=== PATIENT | male | born 2000 | race Two or more races ===

== ENCOUNTER 2024-11-06 16:51 | Emergency (ER) | payer MEDICAID, SELFPAY ==
[2024-11-06 16:55] VITALS: BP 141/85; PULSE 110; RESP 17; TEMP 36.8; O2SAT 99; BMI 26.6
[2024-11-06 17:00] VITALS: PULSE 112; O2SAT 98; BMI 25.8
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
[2024-11-06] MEDS: SODIUM CHLORIDE 0.9% 1000 ML 1,000 ML 125 ML IV (17:13)
[2024-11-06] MEDS: MORPHINE SULF INJ 10 MG/ML VIAL 4 MG IVP (17:13)
[2024-11-06 17:26] LABS: Basophils # (Auto) 0.1 Thou/mm3 (0.0-0.2); Basophils % (Auto) 0 % (0-2.5); Eosinophils % (Auto) 0 % (0-10); Hematocrit 44.8 % (41.0-53.0); Hemoglobin 16.6 g/dL (13.5-16.0); Immature Granulocytes % (Auto) 1 % (0-0); Immature Granulocytes Auto 0.25 Thou/mm3 (0.00-0.00); Lymphocytes # (Auto) 3.1 Thou/mm3 (1.0-4.8); Lymphocytes % (Auto) 13 % (10-50); Mean Corpuscular HGB Conc 37.1 g/dl (31.0-37.0); Mean Corpuscular Volume 81 fL (80-100); Monocytes # (Auto) 1.4 Thou/mm3 (0.0-0.8); Monocytes % (Auto) 6 % (0-12); Neutrophils # (Auto) 18.8 Thou/mm3 (1.8-7.7); Neutrophils % (Auto) 80 % (37-80); Nucleated Red Blood Cell % 0 /100 WBC (0); Platelet Count 273 Thou/mm3 (140-440); RDW Standard Deviation 36.2 fL (35.1-43.9); Red Blood Count 5.54 Miln/mm3 (4.50-5.90); White Blood Count 23.5 Thou/mm3 (3.8-10.6)
[2024-11-06] MEDS: HYDROmorphone INJ 2 MG/ML VIAL 1 MG IVP ×2 (17:34→18:51)
[2024-11-06 17:56] LABS: Alanine Aminotransferase 69 U/L (10-49); Albumin, Serum 4.9 gm/dL (3.5-5.0); Alkaline Phosphatase 62 U/L (46-116); Anion Gap 13 (7-16); Aspartate Amino Transferase 84 U/L (0-34); BUN/Creatinine Ratio 9 Ratio (12-20); Bilirubin,Total 0.9 mg/dL (0.3-1.2); Blood Urea Nitrogen 11 mg/dL (9-23); Calcium 9.5 mg/dL (8.3-10.6); Calcium (Corrected) 9.5 mg/dL (8.5-10.1); Carbon Dioxide 21.2 mMol/L (20.0-31.0); Chloride 105 mMol/L (98-107); Creatinine (Component) 1.2 mg/dL (0.6-1.3); Estimated Creatinine Clearance 87.1 mL/min (>60); Globulin 2.4 gm/dL (2.3-3.5); Glucose 155 mg/dL (74-106); Lipase 37 U/L (12-53); Osmolality,Calculated 279 (275-295); Sodium 139 mMol/L (136-145); Total Protein 7.3 gm/dL (5.7-8.2); Troponin I < 0.020 ng/mL (0.0-0.045); eGFR > 60 See Note
[2024-11-06 17:57] LABS: Potassium 2.6 mMol/L (3.4-5.1)
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
[2024-11-06 18:02] VITALS: BP 146/87; PULSE 91; RESP 14; TEMP 37.1; O2SAT 98
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
[2024-11-06] MEDS: POTASSIUM CHL 10 mEq IVPB 10 MEQ/100 ML BAG 100 MEQ IV ×2 (18:38→19:30)
[2024-11-06] MEDS: PIPER/TAZO INJ 4.5 GM in SODIUM CHLORIDE 0.9% (POP) 100 ML IV (18:51)
[2024-11-06 18:56] LABS: Alcohol, Blood Medical < 10.0 mg/dL (0-10.0)
--- NOTE | 2024-11-06 19:09 | PC.NURSE ---
Informed Dr. Arias that patient used urinal and has hematuria. No new orders received.
[2024-11-06 19:38] VITALS: BP 132/75; PULSE 79; RESP 16; TEMP 36.7; O2SAT 100
[2024-11-06] MEDS: POTASSIUM CHLORIDE 20 mEq TABCR 40 MEQ PO (20:18)
[2024-11-06 20:20] VITALS: BP 141/82; PULSE 91; RESP 17; TEMP 36.7; O2SAT 100
[2024-11-06] MEDS: ONDANSETRON INJ 2 MG/ML INJ 2 ML 4 MG IVP (20:30)
--- NOTE | 2024-11-06 20:30 | PC.NURSE ---
[facility] here to transfer pt to [facility], report given to Rainer and Rick.
--- NOTE | 2024-11-06 20:37 | PC.NURSE ---
Report given to CATALINO Ventura at [facility]
== END 2024-11-06 20:41 | disposition short-term general hospital (02) ==
PROVIDERS: Physician Assistant Medical; Emergency Provider Emergency Medicine
DX: S09.90XA Unspecified injury of head, initial encounter (principal); S29.9XXA Unspecified injury of thorax, initial encounter; M54.2 Cervicalgia; V43.52XA Car driver injured in collision with other type car in traffic accident, initial encounter; E27.49 Other adrenocortical insufficiency
CPT/HCPCS: 36415; 70450; 71045; 71260; 72125; 74177; 80053; 80320; 83690; 84484; 85025; 96361; 96365; 96375; 99285; A4649; J1171; J2270; J2405; J2543; J3480; J7030; Q9967; A9270; G0480